=== PATIENT | male | born 1985 | race African-American/Black ===

== ENCOUNTER 2021-01-27 04:10 | Emergency (ER) | payer SELFPAY ==
[~2021-01-27] VITALS: Ht 180.3 cm; Wt 79.0 kg
[2021-01-27] MEDS ORDERED: MORPHINE SULFATE 4 MG/ML CPJ (NOT FOR IM USE) IV ONE (04:45)
[2021-01-27] MEDS ORDERED: DIPHENHYDRAMINE 25MG CAPSULE PO ONE (04:45)
[2021-01-27] MEDS ORDERED: ONDANSETRON HCL 4MG/2ML INJ IV ONE (04:45)
[2021-01-27 04:54] VITALS: BP 113/68
== END 2021-01-27 05:15 | disposition home or self-care (01) ==
LOC: ER 04:10
DX: D57.09 Hb-SS disease with crisis with other specified complication (principal); M54.89 Other dorsalgia; Z88.0 Allergy status to penicillin
CPT/HCPCS: 96374; 96375; 99284; J2270; J2405; Q0163